=== PATIENT | female | born 1995 | race Caucasian/White ===

== ENCOUNTER 2017-11-07 16:58 | Emergency (ER) | payer OTHER ==
--- NOTE | 2017-11-07 17:15 | PDOC ---
History of Present Illness <Tasha Bran - Last Filed: 11/07/17 19:06> - General History Source: Patient Exam Limitations: No Limitations - History of Present Illness Initial Comments: 11/07/17 21:10 The patient is a 21 year old female with no significant past medical history who presents to the ED after getting her right ring finger caught in a car door approximately 30 minutes prior to arrival. The patient reports a break in her fingernail as well as bleeding. She reports pain to the area but reports good movement of her finger. She denies taking anything for her pain. She denies any numbness or tingling. The patient denies any recent illness, fever, or chills. She reports her last tetanus was <10 years ago. Reports she does not think she is . <Rosalie Bull - Last Filed: 11/07/17 21:11> - General Chief Complaint: Injury Stated Complaint: RNF SECIND FINGER CRUSH IN CAR DOOR Past History - Reproductive History (#): 1 Therapeutic (s) & number: Yes (1) - Immunization History Immunization Up to Date: Yes - Suicide/Smoking/Psychosocial Hx Smoking History: Never smoked Have you smoked in the past 12 months: No Hx Alcohol Use: No Drug/Substance Use Hx: No Substance Use Type: None <Tasha Bran - Last Filed: 11/07/17 19:06> <Rosalie Bull - Last Filed: 11/07/17 21:11> - Past Medical History Allergies/Adverse Reactions: Allergies Allergy/AdvReac Type Severity Reaction Status Date / Time No Known Drug Allergies Allergy Verified 11/07/17 16:59 APPLES AdvReac Uncoded 11/07/17 16:59 Home Medications: Ambulatory Orders NK [No Known Home Medication] 05/17/14 Review of Systems - Review of Systems Able to Perform ROS?: Yes Comments:: 11/07/17 21:10 GENERAL/CONSTITUTIONAL: No fever or chills. No weakness. HEAD, EYES, EARS, NOSE AND THROAT: No change in vision. No ear pain or discharge. No sore throat. GASTROINTESTINAL: No nausea, vomiting, diarrhea or constipation. GENITOURINARY: No dysuria, frequency, or change in urination. CARDIOVASCULAR: No chest pain or shortness of breath. RESPIRATORY: No cough, wheezing, or hemoptysis. MUSCULOSKELETAL: Present: pain to right ring finger No joint or muscle swelling or pain. No neck or back pain. SKIN: No rash NEUROLOGIC: No headache, vertigo, loss of consciousness, or change in strength/ sensation. ENDOCRINE: No increased thirst. No abnormal weight change. HEMATOLOGIC/LYMPHATIC: No anemia, easy bleeding, or history of blood clots. ALLERGIC/IMMUNOLOGIC: No hives or skin allergy. All Other Systems: Reviewed and Negative <Rosalie Bull - Last Filed: 11/07/17 21:11> *Physical Exam - Vital Signs Last Vital Signs Temp Pulse Resp BP Pulse Ox 98.1 F 91 H 20 84/41 100 11/07/17 16:58 11/07/17 16:58 11/07/17 16:58 11/07/17 16:58 11/07/17 16:58 - Physical Exam Comments: 11/07/17 21:11 GENERAL: Awake, alert, and fully oriented, in no acute distress HEAD: No signs of trauma EYES: PERRLA, EOMI, sclera anicteric, conjunctiva clear ENT: Auricles normal inspection, hearing grossly normal, nares patent, oropharynx clear without exudates. Moist mucosa NECK: Normal ROM, supple, no lymphadenopathy, JVD, or masses LUNGS: Breath sounds equal, clear to auscultation bilaterally. No wheezes, and no crackles HEART: Regular rate and rhythm, normal S1 and S2, no murmurs, rubs or gallops ABDOMEN: Soft, nontender, normoactive bowel sounds. No guarding, no rebound. No masses EXTREMITIES: Normal range of motion, no edema. No clubbing or cyanosis. No cords, erythema. R distal 2nd finger with ttp, ecchymosis and mild edema to the tuft. +<1mm defect to ulnar aspect of the nail without visible subungal hematoma. Some blood oozing through defect although not actively when irrigated. Eponychial fold intact. BACK: No midline spinal tenderness in cervical/thoracic/lumbar region NEUROLOGICAL: Normal speech, cranial nerves intact, negative pronator drift, 5/ 5 strength in all 4 extremities, normal sensation to light touch in all 4 extremities, normal cerebellar exam, normal gait, normal reflexes and tone SKIN: Warm, Dry, normal turgor, no rashes or lesions noted. <Rosalie Bull - Last Filed: 11/07/17 21:11> ED Treatment Course - Medications Given in the ED: ED Medications Discontinued Medications Generic Name Dose Route Start Last Admin Trade Name Ciro PRN Reason Stop Dose Admin Ibuprofen 600 mg 11/07/17 17:38 11/07/17 17:43 Motrin - PO 11/07/17 17:39 600 mg ONCE ONE Administration <Rosalie Bull - Last Filed: 11/07/17 21:11> Medical Decision Making - Medical Decision Making 11/07/17 19:06 21-year-old female presents right second finger pain after slamming a door on her finger. Vitals unremarkable. Exam with swelling in the distal right second finger with <1 mm defect in the mid nail with no underlying hematoma. X-ray obtained which showed a nondisplaced tuft fracture. Case discussed with Dr. Cervantes from orthopedics who recommends Xeroform and splinting of the finger and follow- up with Dr. Costa within the next week. The possibility of a nailbed laceration was discussed, however given the absence of a visible subungual hematoma and the fact that we would have to remove her nail to assess for what would likely be a very small lac, if any, we decided to keep the patient's nail on. Dr. Cervantes also reports that removal of the nail in this situation is now controversial as it may not provide any benefits and cause damage to the nail. The nail was cleaned and irrigated with water and Betadine. Xeroform and finger gauze were placed as well as a finger splint. Patient was given referral to see Dr. Costa within the next week. Her pain is well controlled and she requests discharge home. I discussed the physical exam findings, ancillary test results and final diagnoses with the patient. I answered all of the patient's questions. The patient was satisfied with the care received and felt comfortable with the discharge plan and treatment plan. The patient will call their primary care physician within 24 hours to arrange follow-up and will return to the Emergency Department with any new, persistent or worsening symptoms. <Tasha Bran - Last Filed: 11/07/17 19:06> *DC/Admit/Observation/Transfer - Discharge Dispostion Admit: No - Attestations Physician Attestion: 11/07/17 19:14 I, Dr. Tasha Bran MD, attest that this document has been prepared under my direction and personally reviewed by me in its entirety. I further attest, that it accurately reflects all work, treatment, procedures and medical decision -making performed by me. <Tasha Bran - Last Filed: 11/07/17 19:06> - Attestations Scribe Attestion: 11/07/17 21:11 Documentation prepared by Rosalie Bull, acting as medical collections representative for Tasha Bran MD. <Rosalie Bull - Last Filed: 11/07/17 21:11> Diagnosis at time of Disposition: Closed fracture of tuft of distal phalanx of finger - Discharge Dispostion Disposition: HOME Condition at time of disposition: Stable - Referrals Referrals: Nemesio Costa MD [Staff Physician] - - Patient Instructions Printed Discharge Instructions: DI for Finger Fracture Additional Instructions: Call Dr. Costa's office for a follow-up appointment within 2-3 days with orthopedics. Take Motrin as needed for pain. Return to the emergency department if you have any new, worsening or concerning symptoms.
[2017-11-07 17:21] VITALS: BP 84/41; PULSE 91; TEMP 98.1; BMI 20.3
[2017-11-07] MEDS ORDERED: IBUPROFEN 600 MG TABLET (FP) PO ONE ×2 (17:38→17:42)
== END 2017-11-07 19:23 | disposition home or self-care (01) ==
LOC: FER 16:58
DX: S62.660A Nondisplaced fracture of distal phalanx of right index finger, initial encounter for closed fracture (principal); W23.0XXA Caught, crushed, jammed, or pinched between moving objects, initial encounter; Y93.89 Activity, other specified; Y92.410 Unspecified street and highway as the place of occurrence of the external cause
CPT/HCPCS: 73140-TC-RT-FY; 99282-25